=== PATIENT | male | born 1975 | race Caucasian/White ===

== ENCOUNTER 2018-08-22 20:59 | Emergency (ER) | payer BC ==
[2018-08-22 21:05] VITALS: RESP 18
[2018-08-22] MEDS ORDERED: ASPIRIN 81 MG PO STA (21:21)
[2018-08-22] MEDS ORDERED: SODIUM CHLORIDE 0.9% 1,000 ML IV STA (21:21)
--- NOTE | 2018-08-22 21:24 | ED ---
Chest Pain HPI - General Chief Complaint: Chest Pain Stated Complaint: CHEST PAIN Time Seen by Provider: 08/22/18 21:20 Source: patient Mode of arrival: wheelchair Limitations: no limitations - History of Present Illness Initial Comments: Yogi is a previously healthy 43-year-old male who presents to emergency department today for evaluation of burning epigastric and retrosternal chest discomfort. Patient reports he was in his usual state of health throughout the day, this evening he developed a burning discomfort in his epigastrium and retrosternal area that radiated to his back. Patient reports he took multiple Tums with minimal improvement in his symptoms which I'm he decided to come to the emergency department for evaluation. Patient describes discomfort as a burning, no associated nausea, vomiting, no exertional chest pain, no diaphoresis. Patient has no cardiac history. He is a nonsmoker. May have a history of hypertension but currently is not on any medications and has controlled blood pressure, no history of hyperlipidemia. No family history of early cardiac disease. - Related Data Home Medications Medication Instructions Recorded Confirmed predniSONE See Taper PO DAILY 08/22/18 08/22/18 Allergies Allergy/AdvReac Type Severity Reaction Status Date / Time No Known Allergies Allergy Verified 08/22/18 22:11 Review of Systems ROS Statement: Those systems with pertinent positive or pertinent negative responses have been documented in the HPI. ROS Other: All systems not noted in ROS Statement are negative. EKG Findings - EKG Comments: EKG Findings:: EKG was obtained at 9:12 PM, rate is 84, rhythm is sinus, there is a normal axis, there are normal intervals, WA 116, QRS 90, QTc is 437. There are no acute ST elevations or depressions no evidence of acute ischemia or infarction. Past Medical History Past Medical History: Hypertension Additional Past Medical History / Comment(s): back pain History of Any Multi-Drug Resistant Organisms: None Reported Past Surgical History: Cholecystectomy Past Psychological History: No Psychological Hx Reported Smoking Status: Never smoker Past Alcohol Use History: Occasional Past Drug Use History: None Reported General Exam - General Exam Comments Initial Comments: Physical Exam GENERAL: Patient is well-developed and well-nourished. Patient is nontoxic and well- hydrated and is in no distress. HENT: Normocephalic, Atraumatic. EYES: PERRL, EOMI PULMONARY: Unlabored respirations. No audible rales rhonchi or wheezing was noted. CARDIOVASCULAR: There is a regular rate and rhythm without any murmurs gallops or rubs. ABDOMEN: Soft and nontender with normal bowel sounds. SKIN: Skin is clear with no lesions or rashes and otherwise unremarkable. : Deferred NEUROLOGIC: Patient is alert and oriented x3. Moving all extremities spontaneously MUSCULOSKELETAL: Normal extremities with adequate strength and full range of motion. No lower extremity swelling or edema. No calf tenderness. PSYCHIATRIC: Normal psychiatric evaluation. Limitations: no limitations Limitations: no limitations Course Vital Signs 08/22/18 08/22/18 21:02 23:54 Temperature 97.8 F 97.3 F L Pulse Rate 82 80 Respiratory 18 18 Rate Blood Pressure 164/92 158/88 O2 Sat by Pulse 97 98 Oximetry Chest [facility] The patient was seen and evaluated, history was obtained from the patient excited patient is low risk for cardiac chest pain however I will obtain labs, EKG and chest x-ray and EKG is nonischemic Chest x-ray unremarkable Troponin is negative Patient was reevaluated, reports resolution of his discomfort. Heart score 1 Patient very low risk for cardiac etiology of his discomfort, I discussed options with patient including observation for further monitoring and consultation with cardiology versus discharge home. At this time patient preferred be discharged home. Advised patient to contact his primary care provider for follow-up. Return parameters were discussed. All questions pertaining care were answered patient was discharged home in stable condition. Disposition Clinical Impression: Atypical chest pain Disposition: HOME SELF-CARE Condition: Good Instructions: Chest Pain (ED) Is patient prescribed a controlled substance at d/c from ED?: No Referrals: Duran Ruiz MD [Primary Care Provider] - 1-2 days Time of Disposition: 23:35
[2018-08-22 21:55] LABS: Basophils % (A) 0 %; Eosinophils # (A) 0.2 k/uL (0-0.7); Eosinophils % (A) 2 %; HCT 42.2 % (39.0-53.0); HGB 14.7 gm/dL (13.0-17.5); Lymphocytes # (A) 2.6 k/uL (1.0-4.8); Lymphocytes % (A) 21 %; MCH 32.3 pg (25.0-35.0); MCHC 34.7 g/dL (31.0-37.0); Mean Platelet Volume 6.9; Monocytes # (A) 0.7 k/uL (0-1.0); Monocytes % (A) 6 %; Neutrophils # (A) 8.9 k/uL (1.3-7.7); Neutrophils % (A) 70 %; Platelet Count 254 k/uL (150-450); RBC 4.54 m/uL (4.30-5.90); RDW 12.6 % (11.5-15.5); WBC 12.7 k/uL (3.8-10.6)
[2018-08-22 22:05] LABS: ALT 38 U/L (21-72); AST 20 U/L (17-59); Albumin 3.9 g/dL (3.5-5.0); Alkaline Phosphatase 52 U/L (38-126); Anion Gap 9 mmol/L; Blood Urea Nitrogen 21 mg/dL (9-20); Calcium 9.3 mg/dL (8.4-10.2); Carbon Dioxide 26 mmol/L (22-30); Chloride 104 mmol/L (98-107); Glucose 120 mg/dL (74-99); Lipase 197 U/L (23-300); Magnesium 1.9 mg/dL (1.6-2.3); Potassium 3.7 mmol/L (3.5-5.1); Sodium 139 mmol/L (137-145); Total Bilirubin 0.3 mg/dL (0.2-1.3); Total Protein 6.7 g/dL (6.3-8.2)
[2018-08-22 22:07] LABS: Creatine Kinase 55 U/L (55-170)
[2018-08-22 22:08] LABS: D-Dimer 0.19 mg/L FEU (<0.60); INR 0.9 (<1.2); Partial Thromboplastin Time 22.7 sec (22.0-30.0)
--- NOTE | 2018-08-22 22:08 | XR ---
EXAMINATION TYPE: XR chest 2V DATE OF EXAM: 08/22/2018 COMPARISON: 03/03/2012 HISTORY: Chest pain TECHNIQUE: Frontal and lateral views of the chest are obtained. FINDINGS: Heart and mediastinum are normal. Lungs are clear. Diaphragm is normal. Bony thorax is int act. There are chest leads. IMPRESSION: Normal chest. No change.
[2018-08-22 22:20] LABS: Creatine Kinase MB 0.6 ng/mL (0.0-2.4); Troponin I <0.012 ng/mL (0.000-0.034)
[2018-08-22 23:54] VITALS: BP 158/88; PULSE 80; TEMP 97.3
== END 2018-08-22 23:54 | disposition home or self-care (01) ==
LOC: EC 20:59
DX: R07.89 Other chest pain (principal); Z90.49 Acquired absence of other specified parts of digestive tract; Z79.52 Long term (current) use of systemic steroids
CPT/HCPCS: 36415; 71046; 80053; 82550; 82553; 83690; 83735; 84484; 85025; 85379; 85610; 85730; 93005; 96360; 99285

== ENCOUNTER → 2020-05-28 | Outpatient (CLI) | payer BC | END | disposition home or self-care (01) | LOC: LABWHC1 12:47 | PROVIDERS: ATTEND Emergency Medicine | DX: Z20.828 Contact with and (suspected) exposure to other viral communicable diseases (principal) | CPT/HCPCS: U0003; C9803 ==

== ENCOUNTER → 2020-06-12 | Outpatient (CLI) | payer BC | END | disposition home or self-care (01) | LOC: LABWHC1 09:21 | PROVIDERS: ATTEND Emergency Medicine | DX: Z20.828 Contact with and (suspected) exposure to other viral communicable diseases (principal) | CPT/HCPCS: U0003; C9803 ==

== ENCOUNTER 2021-01-01 08:19 | Emergency (ER) | payer BC ==
[2021-01-01] MEDS ORDERED: ALBUTEROL HFA INHALER INHALATION STA (08:35)
--- NOTE | 2021-01-01 08:37 | ED ---
General Adult HPI - General Chief complaint: Upper Respiratory Infection Stated complaint: covid+/cough Time Seen by Provider: 01/01/21 08:27 Source: patient, RN notes reviewed Mode of arrival: ambulatory Limitations: no limitations - History of Present Illness Initial comments: Patient is a pleasant 45-year-old male presenting to the emergency department with concerns for cough and shortness of breath. Patient was tested positive for covid 10 days ago. Onset of symptoms was approximately 11 days ago. Patient does have cough and some shortness of breath. Source of breath worsens with coughing episodes. Patient is fatigued. Decreased appetite and oral intake. No vomiting or diarrhea. No loss of taste or smell. Patient does have chills and myalgias and fatigue. - Related Data Home Medications Medication Instructions Recorded Confirmed Acetaminophen Tab [Tylenol] 1,000 mg PO Q4H PRN 01/01/21 01/01/21 Benzonatate [Tessalon Perles] 100 - 200 mg PO TID PRN 01/01/21 01/01/21 Previous Rx's Medication Instructions Recorded Albuterol Sulfate [Albuterol 2 puff INHALATION Q6H PRN #1 01/01/21 Sulfate Hfa] inhaler Allergies Allergy/AdvReac Type Severity Reaction Status Date / Time No Known Allergies Allergy Verified 01/01/21 09:02 Review of Systems ROS Statement: Those systems with pertinent positive or pertinent negative responses have been documented in the HPI. ROS Other: All systems not noted in ROS Statement are negative. Constitutional: Reports: fever, chills Eyes: Denies: eye pain ENT: Denies: ear pain Respiratory: Reports: cough, dyspnea Cardiovascular: Denies: chest pain Endocrine: Reports: fatigue Gastrointestinal: Denies: abdominal pain Genitourinary: Denies: dysuria Musculoskeletal: Denies: back pain Skin: Denies: rash Neurological: Denies: weakness Past Medical History Past Medical History: Hypertension Additional Past Medical History / Comment(s): back pain History of Any Multi-Drug Resistant Organisms: None Reported Past Surgical History: Cholecystectomy Past Psychological History: No Psychological Hx Reported Smoking Status: Never smoker Past Alcohol Use History: Occasional Past Drug Use History: None Reported General Exam Limitations: no limitations General appearance: alert, in no apparent distress Head exam: Present: normocephalic Eye exam: Present: normal appearance Neck exam: Present: normal inspection Respiratory exam: Present: normal lung sounds bilaterally Cardiovascular Exam: Present: tachycardia GI/Abdominal exam: Present: soft. Absent: tenderness Extremities exam: Present: normal inspection. Absent: pedal edema, calf tenderness Neurological exam: Present: alert Psychiatric exam: Present: normal affect, normal mood Skin exam: Present: normal color Course Vital Signs 01/01/21 01/01/21 01/01/21 08:21 09:20 09:23 Temperature 99.8 F H 100.8 F H Pulse Rate 107 H 92 Respiratory 22 18 Rate Blood Pressure 133/81 142/77 O2 Sat by Pulse 94 L 95 Oximetry 01/01/21 10:26 Temperature Pulse Rate 87 Respiratory 18 Rate Blood Pressure 133/72 O2 Sat by Pulse 94 L Oximetry EKG Findings - EKG Comments: EKG Findings:: Normal sinus rhythm and 97. PA 128. QRS 96. QT 332. QTC 421. Normal axis. Normal QRS. No acute ST change. Medical Decision Making - Medical Decision Making Patient reevaluated and updated. Patient is feeling better. Patient is not a candidate for monoclonal antibodies or admission. - Lab Data Result diagrams: 01/01/21 08:35 01/01/21 08:35 Lab Results 01/01/21 01/01/21 01/01/21 Range/Units 08:35 08:35 08:35 WBC 4.4 (3.8-10.6) k/uL RBC 5.07 (4.30-5.90) m/uL Hgb 16.4 (13.0-17.5) gm/dL Hct 46.8 (39.0-53.0) % MCV 92.2 (80.0-100.0) fL MCH 32.3 (25.0-35.0) pg MCHC 35.0 (31.0-37.0) g/dL RDW 11.9 (11.5-15.5) % Plt Count 214 (150-450) k/uL MPV 6.6 Neutrophils % 74 % Lymphocytes % 18 % Monocytes % 5 % Eosinophils % 0 % Basophils % 1 % Neutrophils # 3.2 (1.3-7.7) k/uL Lymphocytes # 0.8 L (1.0-4.8) k/uL Monocytes # 0.2 (0-1.0) k/uL Eosinophils # 0.0 (0-0.7) k/uL Basophils # 0.0 (0-0.2) k/uL PT 10.7 (9.0-12.0) sec INR 1.0 (<1.2) APTT 27.1 (22.0-30.0) sec D-Dimer 0.89 H (<0.60) mg/L FEU Sodium 134 L (137-145) mmol/L Potassium 4.5 (3.5-5.1) mmol/L Chloride 96 L (98-107) mmol/L Carbon Dioxide 28 (22-30) mmol/L Anion Gap 10 mmol/L BUN 11 (9-20) mg/dL Creatinine 1.03 (0.66-1.25) mg/dL Est GFR (CKD-EPI)AfAm >90 (>60 ml/min/1.73 sqM) Est GFR (CKD-EPI)NonAf 88 (>60 ml/min/1.73 sqM) Glucose 147 H (74-99) mg/dL Plasma Lactic Acid Carlos (0.7-2.0) mmol/L Calcium 9.3 (8.4-10.2) mg/dL Magnesium 2.0 (1.6-2.3) mg/dL Total Bilirubin 0.5 (0.2-1.3) mg/dL AST 61 H (17-59) U/L ALT 62 H (4-49) U/L Alkaline Phosphatase 108 (38-126) U/L Lactate Dehydrogenase 862 H (313-618) U/L C-Reactive Protein 5.7 H (<1.0) mg/dL Total Protein 7.4 (6.3-8.2) g/dL Albumin 4.4 (3.5-5.0) g/dL 01/01/21 Range/Units 08:35 WBC (3.8-10.6) k/uL RBC (4.30-5.90) m/uL Hgb (13.0-17.5) gm/dL Hct (39.0-53.0) % MCV (80.0-100.0) fL MCH (25.0-35.0) pg MCHC (31.0-37.0) g/dL RDW (11.5-15.5) % Plt Count (150-450) k/uL MPV Neutrophils % % Lymphocytes % % Monocytes % % Eosinophils % % Basophils % % Neutrophils # (1.3-7.7) k/uL Lymphocytes # (1.0-4.8) k/uL Monocytes # (0-1.0) k/uL Eosinophils # (0-0.7) k/uL Basophils # (0-0.2) k/uL PT (9.0-12.0) sec INR (<1.2) APTT (22.0-30.0) sec D-Dimer (<0.60) mg/L FEU Sodium (137-145) mmol/L Potassium (3.5-5.1) mmol/L Chloride (98-107) mmol/L Carbon Dioxide (22-30) mmol/L Anion Gap mmol/L BUN (9-20) mg/dL Creatinine (0.66-1.25) mg/dL Est GFR (CKD-EPI)AfAm (>60 ml/min/1.73 sqM) Est GFR (CKD-EPI)NonAf (>60 ml/min/1.73 sqM) Glucose (74-99) mg/dL Plasma Lactic Acid Carlos 1.5 (0.7-2.0) mmol/L Calcium (8.4-10.2) mg/dL Magnesium (1.6-2.3) mg/dL Total Bilirubin (0.2-1.3) mg/dL AST (17-59) U/L ALT (4-49) U/L Alkaline Phosphatase (38-126) U/L Lactate Dehydrogenase (313-618) U/L C-Reactive Protein (<1.0) mg/dL Total Protein (6.3-8.2) g/dL Albumin (3.5-5.0) g/dL - Radiology Data Radiology results: report reviewed (Computed tomography scan of the chest shows no evidence of pulmonary embolism. Concern for COVID-19 pneumonia.), image reviewed (X-ray shows right basilar infiltrate.) Disposition Clinical Impression: COVID-19 Disposition: HOME SELF-CARE Condition: Stable Instructions (If sedation given, give patient instructions): Viral Pneumonia (ED), Fever in Adults (ED) Additional Instructions: Continue to quarantine yourself until over 24 hours fever free. [id number] vitamin C, vitamin D, and zinc. Melatonin at bedtime. Please do follow-up with your primary care physician in the next couple days for recheck. Return for difficulty breathing, uncontrolled fevers, not tolerating fluids, worsening symptoms or any other concerns. Prescription for inhaler has been sent to your pharmacy. Prescriptions: Albuterol Sulfate [Albuterol Sulfate Hfa] 2 puff INHALATION Q6H PRN #1 inhaler PRN Reason: Shortness Of Breath Is patient prescribed a controlled substance at d/c from ED?: No Referrals: Duran Ruiz MD [Primary Care Provider] - 1-2 days Time of Disposition: 11:37
--- NOTE | 2021-01-01 09:00 | XR ---
EXAMINATION TYPE: XR chest 1V portable DATE OF EXAM: 01/01/2021 COMPARISON: 08/22/2018 HISTORY: Suspected COVID-19 pneumonia TECHNIQUE: Single frontal view of the chest is obtained. FINDINGS: Patchy infiltrate right medial lung base. The cardiac silhouette size is within normal limits. The osseous structures are intact. IMPRESSION: 1. Right medial basilar infiltrate compatible with pneumonia.
[2021-01-01] MEDS ORDERED: SODIUM CHLORIDE 0.9% 1,000 ML IV STA (09:04)
[2021-01-01 09:15] LABS: Basophils % (A) 1 %; Eosinophils % (A) 0 %; HCT 46.8 % (39.0-53.0); HGB 16.4 gm/dL (13.0-17.5); Lymphocytes # (A) 0.8 k/uL (1.0-4.8); Lymphocytes % (A) 18 %; MCH 32.3 pg (25.0-35.0); MCV 92.2 fL (80.0-100.0); Mean Platelet Volume 6.6; Monocytes # (A) 0.2 k/uL (0-1.0); Monocytes % (A) 5 %; Neutrophils # (A) 3.2 k/uL (1.3-7.7); Neutrophils % (A) 74 %; Platelet Count 214 k/uL (150-450); RBC 5.07 m/uL (4.30-5.90); RDW 11.9 % (11.5-15.5); WBC 4.4 k/uL (3.8-10.6)
[2021-01-01 09:29] LABS: ALT 62 U/L (4-49); AST 61 U/L (17-59); African American GFR (CKD) >90 (>60 ml/min/1.73 sqM); Albumin 4.4 g/dL (3.5-5.0); Alkaline Phosphatase 108 U/L (38-126); Anion Gap 10 mmol/L; Blood Urea Nitrogen 11 mg/dL (9-20); C Reactive Protein 5.7 mg/dL (<1.0); Calcium 9.3 mg/dL (8.4-10.2); Carbon Dioxide 28 mmol/L (22-30); Chloride 96 mmol/L (98-107); Glucose 147 mg/dL (74-99); LDH 862 U/L (313-618); Non-African American GFR(CKD) 88 (>60 ml/min/1.73 sqM); Potassium 4.5 mmol/L (3.5-5.1); Sodium 134 mmol/L (137-145); Total Bilirubin 0.5 mg/dL (0.2-1.3); Total Protein 7.4 g/dL (6.3-8.2)
[2021-01-01] MEDS ORDERED: IBUPROFEN 600 MG TAB PO STA (09:33)
[2021-01-01 09:37] LABS: Prothrombin Time 10.7 sec (9.0-12.0)
[2021-01-01 09:38] LABS: Partial Thromboplastin Time 27.1 sec (22.0-30.0)
[2021-01-01 10:03] LABS: D-Dimer 0.89 mg/L FEU (<0.60)
[2021-01-01 10:31] VITALS: RESP 18; TEMP 100.8
--- NOTE | 2021-01-01 11:24 | CT ---
EXAMINATION TYPE: CT angio chest DATE OF EXAM: 01/01/2021 COMPARISON: None HISTORY: Dyspnea CT DLP: 477.9 mGycm CONTRAST: CT chest with contrast and 3D reconstruction with MIP imaging is performed with IV Contrast, patient injected with 75 mL of Isovue 370. Contrast-enhanced CT of the chest was performed through the course of the pulmonary arteries with neo g and mediastinal window settings submitted. 3D reconstruction with MIP imaging was also performed. PULMONARY ARTERIES: The pulmonary arteries and their major tributaries are patent. I do not see tessa dence for sizable filling defect to suggest pulmonary embolic process. LUNGS: Patchy basilar infiltrates compatible with Covid 19 pneumonia. No evidence for atelectasis. No pulmonary nodule or mass is detected. No pleural effusion. MEDIASTINUM: Thoracic aorta is of normal caliber,however, evaluation is limited given timing of the contrast bolus. If there is concern for thoracic aortic pathology consider RISHI. Correlate clinicall y . The heart is not enlarged. No evidence for mediastinal mass. No mediastinal lymph nodes greater than 1cm. HILAR STRUCTURES: No evidence for mass. No hilar lymph nodes greater than 1 cm. UPPER ABDOMEN: No significant abnormality is seen. IMPRESSION: 1. No evidence for Pulmonary embolism at this time. 2. Covid 19 pneumonia.
[2021-01-01 11:47] VITALS: BP 123/83; PULSE 84
[2021-01-01 15:38] LABS: Ferritin 1098.5 ng/mL (22.0-322.0)
== END 2021-01-01 11:47 | disposition home or self-care (01) ==
LOC: EC 08:19
DX: U07.1 COVID-19 (principal); I10 Essential (primary) hypertension
CPT/HCPCS: 36415; 94640; 93005; 85379; 80053; 82728; 83605; 83615; 83735; 85025; 85610; 85730; 86140; 84145; 71045; 71275; 99285; 96360; 96361; Q9967

== ENCOUNTER 2024-01-30 14:51 | Emergency (ER) | payer BC ==
--- NOTE | 2024-01-30 15:09 | ED ---
Chest Pain HPI - General Source: patient, RN notes reviewed Mode of arrival: ambulatory Limitations: no limitations - History of Present Illness Complaint: chest pain <Wendy Love - Last Filed: 01/30/24 15:09> - General Source: RN notes reviewed, old records reviewed Mode of arrival: ambulatory - History of Present Illness Complaint: chest pain, other (Keeping near syncope) Onset: during rest, during exertion Pain Location: substernal Pain Radiation: none Quality: tightness, aching Consistency: constant Improves With: nothing Worsens With: nothing Anginal Symptoms: dyspnea, sense of impending doom Other Symptoms: palpitations Treatments Prior to Arrival: none <Duran Kat - Last Filed: 02/03/24 22:52> - General Chief Complaint: Chest Pain Stated Complaint: chest pain, numbness/tingling, dizzy, sob, Time Seen by Provider: 01/30/24 15:05 - History of Present Illness Initial Comments: Quick Note: This is a 48-year-old male who presents to the emergency department for chest pain and shortness of breath. States that it started earlier this morning. Denies any personal cardiac history. He does report a family history of cardiac issues in his father. Denies any history of chest pain in the past. 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 Patient had or did complain of some chest pain.. Patient did feel near syncopal for some time patient has history of stress test Cardiac stress test patient had a stress test secondary to family history of heart disease he himself has no high blood pressure cholesterol diabetes other complaints (Duran Kat) - Related Data Home Medications Medication Instructions Recorded Confirmed Cetirizine HCl [Zyrtec] 10 mg PO HS 01/30/24 01/30/24 Allergies Allergy/AdvReac Type Severity Reaction Status Date / Time No Known Allergies Allergy Verified 01/30/24 16:53 Review of Systems ROS Other: All systems not noted in ROS Statement are negative. <Wendy Love - Last Filed: 01/30/24 15:09> ROS Other: All systems not noted in ROS Statement are negative. <Duran Kat - Last Filed: 02/03/24 22:52> ROS Statement: Those systems with pertinent positive or pertinent negative responses have been documented in the HPI. Past Medical History Past Medical History: Hypertension Additional Past Medical History / Comment(s): back pain History of Any Multi-Drug Resistant Organisms: None Reported Past Surgical History: Cholecystectomy Past Psychological History: No Psychological Hx Reported Smoking Status: Never smoker Past Alcohol Use History: Occasional Past Drug Use History: None Reported <Wendy Love - Last Filed: 01/30/24 15:09> General Exam <Wendy Love - Last Filed: 01/30/24 15:09> General appearance: alert, in no apparent distress Head exam: Present: atraumatic, normocephalic, normal inspection Eye exam: Present: normal appearance, PERRL, EOMI. Absent: scleral icterus, conjunctival injection, periorbital swelling ENT exam: Present: normal exam, mucous membranes moist Neck exam: Present: normal inspection. Absent: tenderness, meningismus, lymphadenopathy Respiratory exam: Present: normal lung sounds bilaterally. Absent: respiratory distress, wheezes, rales, rhonchi, stridor Cardiovascular Exam: Present: regular rate, normal rhythm, normal heart sounds. Absent: systolic murmur, diastolic murmur, rubs, gallop, clicks GI/Abdominal exam: Present: soft, normal bowel sounds. Absent: distended, tenderness, guarding, rebound, rigid Extremities exam: Present: normal inspection, full ROM, normal capillary refill. Absent: tenderness, pedal edema, joint swelling, calf tenderness Back exam: Present: normal inspection Neurological exam: Present: alert, oriented X3, CN II-XII intact Psychiatric exam: Present: normal affect, normal mood Skin exam: Present: warm, dry, intact, normal color. Absent: rash <Duran Kat - Last Filed: 02/03/24 22:52> - General Exam Comments Initial Comments: Visual Physical Exam Vital signs reviewed General: Well-appearing, nontoxic, no acute distress. Head: Normocephalic, atraumatic Eyes: PERRLA, EOMI ENT: Airway patent Chest: Nonlabored breathing Skin: No visual rash, normal skin tone Neuro: Alert and oriented 3 Musculoskeletal: No gross abnormalities (Wendy Love) Course <Duran Kat - Last Filed: 02/03/24 22:52> Vital Signs 01/30/24 01/30/24 14:52 19:48 Temperature 98.2 F Pulse Rate 80 65 Respiratory 16 16 Rate Blood Pressure 149/71 135/93 O2 Sat by Pulse 100 99 Oximetry - Reevaluation(s) Reevaluation #1: 01/30/24 19:41 Records reviewed (Duran Kat) Reevaluation #2: 01/30/24 19:41 Chest pain and syncopal symptoms have resolved (Duran Kat) Reevaluation #3: 01/30/24 19:41 Patient informed of results questions answered (Duran Kat) Reevaluation #4: Was pt. sent in by a medical professional or institution (, PA, BUSINESS SUPPORT LIAISON, urgent care, hospital, or [facility]...) When possible be specific @ -no Did you speak to anyone other than the patient for history (EMS, parent, family, police, friend...)? What history was obtained from this source @ -no Did you review nursing and triage notes (agree or disagree)? Why? @ -agree Are old charts reviewed (outside hosp., previous admission, EMS record, old EKG, old radiological studies, urgent care reports/EKG's, [facility] records)? Report findings @ -yes Differential Diagnosis (chest pain, altered mental status, abdominal pain women, abdominal pain men, vaginal bleeding, weakness, fever, dyspnea, syncope, headache, dizziness, GI bleed, back pain, seizure, CVA, palpatations, mental health, musculoskeletal)? @ -prior EKG interpreted by me (3pts min.). @ -yes X-rays interpreted by me (1pt min.). @ -yes negative for acute disease CT interpreted by me (1pt min.). @ -Yes negative for acute disease U/S interpreted by me (1pt. min.). @ -no What testing was considered but not performed or refused? (CT, X-rays, U/S, labs)? Why? @ -none What meds were considered but not given or refused? Why? @ -none Did you discuss the management of the patient with other professionals (professionals i.e. , PA, BUSINESS SUPPORT LIAISON, lab, RT, psych nurse, social psychologist, water proofer, teacher, hydrological technical officer, case management manager)? Give summary @ -no Was smoking cessation discussed for >3mins.? @ -no Was critical care preformed (if so, how long)? @ -no Were there social determinants of health that impacted care today? How? (Homelessness, low income, unemployed, alcoholism, drug addiction, transportation, low edu. Level, literacy, decrease access to med. care, care home, rehab)? @ -none Was there de-escalation of care discussed even if they declined (Discuss DNR or withdrawal of care, Hospice)? DNR status @ -no What co-morbidities impacted this encounter? (DM, HTN, Smoking, COPD, CAD, Cancer, CVA, ARF, Chemo, Hep., AIDS, mental health diagnosis, sleep apnea, morbid obesity)? @ -none Was patient admitted / discharged? Hospital course, mention meds given and route, prescriptions, significant lab abnormalities, going to OR and other pertinent info. @ - 48 male with a near syncopal event here in the emergency department. Patient has no chest pain or shortness of breath. Symptoms are improved here after some hydration and feeling well. She can be discharged home Discharge Undiagnosed new problem with uncertain prognosis? @ -no Drug Therapy requiring intensive monitoring for toxicity (Heparin, Nitro, I nsulin, Cardizem)? @ -no Were any procedures done? @ -no Diagnosis/symptom? @ -Syncope near syncope Acute, or Chronic, or Acute on Chronic? @ -Acute Uncomplicated (without systemic symptoms) or Complicated (systemic symptoms)? @ -Complicated Side effects of treatment? @ -no Exacerbation, Progression, or Severe Exacerbation? @ -exacerbation Poses a threat to life or bodily function? How? (Chest pain, [place], [place], pneumonia, PE, COPD, DKA, ARF, appy, cholecystitis, CVA, Diverticulitis, Homicidal, Suicidal, threat to staff... and all critical care pts) @ -yes yes with syncopal event (Duran Kat) Reevaluation #5: Differential Syncope: Valvular disease, hypertrophic cardiomyopathy, pulmonary embolism, tamponade, tachycardia, bradycardia, [place], hypovolemia, hemorrhage, dissection, anemia, intracranial hemorrhage, seizure, hypoglycemia, carbon monoxide poisoning, this is not meant to be an all-inclusive list. (Duran Kat) Chest Pain [facility] <Wendy Love - Last Filed: 01/30/24 15:09> <Duran Kat - Last Filed: 02/03/24 22:52> - MDM I performed the QuickNote portion of this chart. Signed Wendy Love PA-C. (Wendy Love) 48 male with a near syncopal event here in the emergency department. Patient has no chest pain or shortness of breath. Symptoms are improved here after some hydration and feeling well. She can be discharged home (Duran Kat) Disposition <Wendy Love - Last Filed: 01/30/24 15:09> Is patient prescribed a controlled substance at d/c from ED?: No Time of Disposition: 19:40 <Duran Kat - Last Filed: 02/03/24 22:52> Clinical Impression: Near syncope Disposition: HOME SELF-CARE Condition: Good Instructions (If sedation given, give patient instructions): Near Syncope (ED) Referrals: Ronald Blake MD [STAFF PHYSICIAN] - 1-2 days
[2024-01-30 15:25] VITALS: RESP 16; TEMP 98.2
[2024-01-30 16:19] LABS: Basophils % (A) 1 %; Eosinophils # (A) 0.1 k/uL (0-0.7); Eosinophils % (A) 1 %; HCT 46.6 % (39.0-53.0); HGB 15.4 gm/dL (13.0-17.5); Lymphocytes # (A) 1.6 k/uL (1.0-4.8); Lymphocytes % (A) 23 %; MCH 31.1 pg (25.0-35.0); MCV 94.3 fL (80.0-100.0); Mean Platelet Volume 7.5; Monocytes # (A) 0.4 k/uL (0-1.0); Monocytes % (A) 6 %; Neutrophils # (A) 4.7 k/uL (1.3-7.7); Neutrophils % (A) 68 %; Platelet Count 261 k/uL (150-450); RBC 4.95 m/uL (4.30-5.90); RDW 11.9 % (11.5-15.5); WBC 6.8 k/uL (3.8-10.6)
[2024-01-30 16:37] LABS: ALT 32 U/L (4-49); AST 28 U/L (17-59); African American GFR (CKD) >90 (>60 ml/min/1.73 sqM); Albumin 4.5 g/dL (3.5-5.0); Alkaline Phosphatase 78 U/L (38-126); Anion Gap 14 mmol/L; Blood Urea Nitrogen 14 mg/dL (9-20); Calcium 9.6 mg/dL (8.4-10.2); Carbon Dioxide 20 mmol/L (22-30); Chloride 101 mmol/L (98-107); Glucose 166 mg/dL (74-99); Magnesium 1.6 mg/dL (1.6-2.3); Non-African American GFR(CKD) >90 (>60 ml/min/1.73 sqM); Potassium 3.8 mmol/L (3.5-5.1); Sodium 135 mmol/L (137-145); Total Bilirubin 0.7 mg/dL (0.2-1.3); Total Protein 7.3 g/dL (6.3-8.2)
[2024-01-30 16:40] LABS: Partial Thromboplastin Time 22.5 sec (22.0-30.0); Prothrombin Time 10.6 sec (10.0-12.5)
[2024-01-30] MEDS: ONDANSETRON 4 MG/2 ML VIAL IVP STA (16:48)
--- NOTE | 2024-01-30 16:52 | XR ---
EXAMINATION TYPE: XR chest 2V DATE OF EXAM: 01/30/2024 4:28 PM CLINICAL INDICATION:Male, 48 years old with history of Chest Pain; COMPARISON: Chest radiographs from 01/01/2021 TECHNIQUE: XR chest 2V Frontal and lateral views of the chest. FINDINGS: Lungs/Pleura: There is no evidence of pleural effusion, focal consolidation, or pneumothorax. Pulmonary vascularity: Unremarkable. Heart/mediastinum: Cardiomediastinal silhouette is unremarkable. Musculoskeletal: No acute osseous pathology. IMPRESSION: No acute cardiopulmonary disease/process.
[2024-01-30 20:10] VITALS: BP 135/93; PULSE 65
[2024-01-30] MEDS: SODIUM CHLORIDE 0.9% 1,000 ML IV STA (20:10)
[2024-01-30] MEDS: SODIUM CHLORIDE 0.9% 500 ML 500 ML IV STA (20:10)
== END 2024-01-30 20:14 | disposition home or self-care (01) ==
LOC: EC 14:51
DX: R55 Syncope and collapse (principal)
CPT/HCPCS: 36415; 93005; 85379; 83880; 80053; 83735; 84484; 85025; 85610; 85730; 71046; 99285; 96374; J2405

== ENCOUNTER → 2024-04-05 | Outpatient (CLI) | payer BC ==
--- NOTE | 2024-04-05 17:20 | CA ---
Transthoracic Echo Report Name: Yogi Mendoza Age: 49 Gender: M : 1975 Exam Date: 04/05/2024 16:29 Exam Location: [facility] Ht (in): 70 Wt (lb): 210 Ordering Physician: Duran Ruiz MD Attending/Referring Phys: Wilber Lemos MD [employer] Kelly Peng, T[place] Procedure CPT: Indications: R55 SYNCOPE AND COLLAPSE Cardiac Hx: Technical Quality: Fair Contrast 1: Total Dose (mL): Contrast 2: Total Dose (mL): MEASUREMENTS (Male / Female) Normal Values 2D ECHO LV Diastolic Diameter PLAX 4.6 cm 4.2 - 5.9 / 3.9 - 5.3 cm LV Systolic Diameter PLAX 2.6 cm IVS Diastolic Thickness 1.3 cm 0.6 - 1.0 / 0.6 - 0.9 cm LVPW Diastolic Thickness 1.4 cm 0.6 - 1.0 / 0.6 - 0.9 cm LV Relative Wall Thickness 0.6 RV Internal Dim ED PLAX 3.8 cm LA Volume 56.7 cm??? 18 - 58 / 22 - 52 cm??? LA Volume Index 25.9 cm???/m??? 16 - 28 cm???/m??? M-MODE Aortic Root Diameter MM 2.9 cm LA Systolic Diameter MM 3.7 cm LA Ao Ratio MM 1.3 AV Cusp Separation MM 2.0 cm DOPPLER AV Peak Velocity 129.7 cm/s AV Peak Gradient 6.7 mmHg AV Mean Velocity 87.3 cm/s AV Mean Gradient 3.6 mmHg AV Velocity Time Integral 23.6 cm LVOT Peak Velocity 100.8 cm/s LVOT Peak Gradient 4.1 mmHg LVOT Velocity Time Integral 18.5 cm MV Area PHT 3.2 cm??? Mitral E Point Velocity 60.7 cm/s Mitral A Point Velocity 89.7 cm/s Mitral E to A Ratio 0.7 MV Deceleration Time 239.5 ms MV E' Velocity 5.9 cm/s Mitral E to MV E' Ratio 10.3 TR Peak Velocity 201.8 cm/s TR Peak Gradient 16.3 mmHg Right Ventricular Systolic Press 21.2 mmHg FINDINGS Left Ventricle Mildly increased left ventricular wall thickness. Left ventricular cavity size normal. Normal left ventricular systolic function with no obvious regional wall motion abnormalities. Left ventricular ejection fraction is estimated at 55-60 %. Right Ventricle Mild right ventricular dilatation. Right ventricular systolic pressure within normal limits. Right Atrium Mild right atrial dilatation. Left Atrium Mildly increased left atrial area. Mitral Valve Structurally normal mitral valve. Trace mitral regurgitation. No mitral stenosis. Aortic Valve Trileaflet aortic valve. No aortic valve stenosis or regurgitation. Tricuspid Valve Structurally normal tricuspid valve. Mild tricuspid regurgitation. Pulmonic Valve Structurally normal pulmonic valve. Trace pulmonic regurgitation. Pericardium No thickening/calcification of the pericardium. Aorta Normal size aortic root and proximal ascending aorta. CONCLUSIONS Normal LV function Previewed by: Dr. Janes Yoder MD (Electronically Signed) Final Date: 05 April 2024 17:19
== END | disposition home or self-care (01) ==
LOC: RADECHMAIN 16:13
PROVIDERS: ATTEND Family Medicine
DX: R55 Syncope and collapse (principal)
CPT/HCPCS: 93306